=== PATIENT | male | born 2000 | race African-American/Black ===

== ENCOUNTER 2020-04-15 23:40 | Emergency (ER) | payer BC ==
[~2020-04-15] VITALS: Ht 182.9 cm; Wt 84.8 kg
[2020-04-16] MEDS ORDERED: TETANUS/DIPHTHERIA TOX ADULT 0.5 ML SYR IM STA
[2020-04-16] MEDS ORDERED: MUPIROCIN 2% OINT 22 GM TUBE TOP ONE
[2020-04-16] MEDS ORDERED: SODIUM CHLORIDE 0.9% 1000ML 1,000 ML IV STA (00:16)
[2020-04-16] MEDS ORDERED: DIPHENHYDRAMINE HCL INJ 50 MG/ML VIAL IV PRN (00:30)
[2020-04-16] MEDS ORDERED: MORPHINE SULFATE INJ 4 MG/ML INJ 1ML IV PRN (00:30)
[2020-04-16] MEDS ORDERED: ONDANSETRON HCL INJ 2MG/ML 2ML 2 MG/ML VIAL IV PRN (00:30)
[2020-04-16] MEDS ORDERED: TETANUS/DIPHTHERIA TOX ADULT 0.5 ML SYR ONE (00:36)
[2020-04-16] MEDS ORDERED: SODIUM CHLORIDE 0.9% 1000ML 1,000 ML ONE (00:36)
[2020-04-16 01:47] VITALS: BP 136/82
== END 2020-04-16 01:55 | disposition other institution (70) ==
LOC: FSED 04-16 00:38
DX: M79.604 Pain in right leg (principal); S80.11XA Contusion of right lower leg, initial encounter; V80.11XA Animal-rider injured in collision with pedestrian or animal, initial encounter
CPT/HCPCS: 73590; 80053; 85025; 90471; 90714; 96372; 96374; 96376; 99284; J2270; J2405; J7030

== ENCOUNTER 2020-04-27 16:48 | Emergency (ER) | payer BC ==
[~2020-04-27] VITALS: Ht 182.9 cm; Wt 81.7 kg
[2020-04-27] MEDS ORDERED: CYCLOBENZAPRINE5 MG PO (17:49)
[2020-04-27] MEDS ORDERED: PREDNISONE20 MG PO (17:49)
== END 2020-04-27 17:56 | disposition home or self-care (01) ==
LOC: FSED 17:17
DX: S83.91XA Sprain of unspecified site of right knee, initial encounter (principal); S50.812A Abrasion of left forearm, initial encounter; V43.52XA Car driver injured in collision with other type car in traffic accident, initial encounter; Y92.488 Other paved roadways as the place of occurrence of the external cause; F17.210 Nicotine dependence, cigarettes, uncomplicated
CPT/HCPCS: 99282